=== PATIENT | female | born 1965 | race Native Hawaiian/Other Pacific Islander ===

== ENCOUNTER 2021-04-23 10:45 | Emergency (ER) | payer OTHER ==
[~2021-04-23] VITALS: Ht 172.7 cm; Wt 72.6 kg
[2021-04-23 10:50] VITALS: TEMP 99
[2021-04-23 11:29] LABS: PLATELET COUNT 193 K/uL (152-353)
[2021-04-23 11:36] LABS: POTASSIUM 3.6 mmol/L (3.6-5.2)
[2021-04-23 14:45] VITALS: BP 107/70
== END 2021-04-23 15:56 | disposition home or self-care (01) ==
LOC: ED 10:45
PROVIDERS: Emergency Medicine
DX: K57.32 Diverticulitis of large intestine without perforation or abscess without bleeding (principal); R16.1 Splenomegaly, not elsewhere classified
CPT/HCPCS: 36415; 80053; 81000; 85027; 96365; 96374; 96375; 99284; J1956; J2175; J2405; Q9963